=== PATIENT | female | born 1975 | race Caucasian/White ===

== ENCOUNTER 2016-08-02 11:44 | Emergency (ER) | payer OTHER ==
[~2016-08-02] VITALS: Ht 177.8 cm; Wt 104.3 kg
[2016-08-02] MEDS ORDERED: IV NORMAL SALINE 1000ML BAG 1,000 ML IV SCH (12:20)
[2016-08-02] MEDS ORDERED: ONDANSETRON PF 4 MG/2 ML VIAL. IV ONE (12:30)
[2016-08-02] MEDS ORDERED: FENTANYL PF 100 MCG/2 ML VIAL. IV PRN (12:30)
--- NOTE | 2016-08-02 12:35 | PHYS DOC ---
Past Medical History Past Medical History: Hypothyroid, UTI, Other Additional Past Medical Histor: cervical dystonia Past Surgical History: Hysterectomy Alcohol Use: Rarely Drug Use: None Adult General Chief Complaint Chief Complaint: WEAKNESS/GENERALIZED HPI HPI Patient is a 41 year old female who presents with complaint of generalized weakness. Patient states that her symptoms have been present over the past 24 hours. The patient went to urgent care due to complaints of dysuria and was started on Macrobid for treatment of urinary tract infection. Patient states since then she has started to get lightheaded, increasing fatigue, increasing shortness of breath, and dull generalized abdominal pain with pain radiating into her bilateral flanks. Patient states that she has felt warm but has not measured her temperature at home. Patient has not had any vomiting. Patient does not feel despite today's treatment that her symptoms are getting any better at this time. Patient states while at work she started getting very lightheaded and diaphoretic and felt like she is going to pass out, therefore she came to the emergency department for evaluation. Patient rates her pain as 7 out of 10 currently. Review of Systems Review of Systems Constitutional: Subjective fever, chills, lightheadedness [] Eyes: Denies change in visual acuity, redness, or eye pain [] HENT: Denies nasal congestion or sore throat [] Respiratory: Shortness of breath [] Cardiovascular: Chest pain [] GI: Abdominal pain, denies nausea, vomiting, bloody stools or diarrhea [] : Dysuria [] Musculoskeletal: Myalgias, bilateral flank pain [] Integument: Denies rash or skin lesions [] Neurologic: Denies headache, focal weakness or sensory changes [] Endocrine: Denies polyuria or polydipsia [] Current Medications Current Medications Current Medications Medications (Trade) Dose Ordered Sig/Suly Start Time Stop Time Status Last Admin Dose Admin Cephalexin HCl (Keflex) 500 mg 1X STAT 08/02/16 14:09 08/02/16 14:13 DC Fentanyl Citrate 50 mcg 50 mcg PRN Q15MIN PRN 08/02/16 12:30 08/03/16 12:29 08/02/16 13:16 50 MCG Ondansetron HCl (Zofran) 4 mg 1X ONCE 08/02/16 12:30 08/02/16 12:34 DC 08/02/16 13:15 4 MG Sodium Chloride (Iv Sodium Chloride 0.9% 1000ml Bag) 1,000 ml @ 1,000 mls/hr Q1H 08/02/16 12:20 08/02/16 14:19 DC 08/02/16 13:16 1,000 MLS/HR Allergies Allergies Allergies Coded Allergies Type Severity Reaction Last Updated Verified sulfamethoxazole Allergy Intermediate itching 08/02/16 Yes trimethoprim Allergy Intermediate itching 08/02/16 Yes Physical Exam Physical Exam Constitutional: Alert, afebrile, appears in mild to moderate discomfort. [] HENT: Normocephalic, atraumatic, bilateral external ears normal, oropharynx moist, no oral exudates, nose normal. [] Eyes: PERRLA, EOMI, conjunctiva normal, no discharge. [] Neck: Normal range of motion, no tenderness, supple, no stridor. [] Cardiovascular: Tachycardia, regular rhythm, no murmur [] Lungs & Thorax: Bilateral breath sounds clear to auscultation [] Abdomen: Bowel sounds normal, soft, no tenderness, no masses, no pulsatile masses. [] Skin: Warm, dry, no erythema, no rash. [] Back: No midline tenderness, bilateral CVA tenderness, no flank ecchymosis. [] Extremities: No tenderness, no cyanosis, no clubbing, ROM intact, no edema. [] Neurologic: Alert and oriented X 3, normal motor function, normal sensory function, no focal deficits noted. [] Current Patient Data Vital Signs Vital Signs Date Time Temp Pulse Resp B/P Pulse Ox O2 Delivery O2 Flow Rate FiO2 08/02/16 13:16 16 08/02/16 11:52 97.9 122 133/92 96 Room Air 97.9 Lab Values Laboratory Tests Test 08/02/16 11:11 08/02/16 12:49 POC Urine HCG, Qualitative Hcg negative (Negative) White Blood Count 12.1x10^3/uL (4.0-11.0) H Red Blood Count 4.41x10^6/uL (3.50-5.40) Hemoglobin 12.9g/dL (12.0-15.5) Hematocrit 39.0% (36.0-47.0) Mean Corpuscular Volume 89fL (79-100) Mean Corpuscular Hemoglobin 29pg (25-35) Mean Corpuscular Hemoglobin Concent 33g/dL (31-37) Red Cell Distribution Width 13.7% (11.5-14.5) Platelet Count 263x10^3/uL (140-400) Neutrophils (%) (Auto) 76% (31-73) H Lymphocytes (%) (Auto) 13% (24-48) L Monocytes (%) (Auto) 7% (0-9) Eosinophils (%) (Auto) 4% (0-3) H Basophils (%) (Auto) 0% (0-3) Neutrophils # (Auto) 9.2x10^3uL (1.8-7.7) H Lymphocytes # (Auto) 1.6x10^3/uL (1.0-4.8) Monocytes # (Auto) 0.9x10^3/uL (0.0-1.1) Eosinophils # (Auto) 0.5x10^3/uL (0.0-0.7) Basophils # (Auto) 0.0x10^3/uL (0.0-0.2) Urine Collection Type Unknown Urine Color Yellow Urine Clarity Clear Urine pH 6.5 Urine Specific [place] 1.010 Urine Protein Negativemg/dL (NEG-TRACE) Urine Glucose (UA) Negativemg/dL (NEG) Urine Ketones (Stick) Negativemg/dL (NEG) Urine Blood Negative (NEG) Urine Nitrite Negative (NEG) Urine Bilirubin Negative (NEG) Urine Urobilinogen Dipstick 0.2mg/dL (0.2 mg/dL) Urine Leukocyte Esterase Negative (NEG) Urine RBC Occ/HPF (0-2) Urine WBC 1-4/HPF (0-4) Urine Squamous Epithelial Cells Mod/LPF Urine Renal Epithelial Cells Few/LPF Urine Bacteria 0/HPF (0-FEW) Urine Mucus Mod/LPF Sodium Level 144mmol/L (136-145) Potassium Level 3.9mmol/L (3.5-5.1) Chloride Level 108mmol/L (98-107) H Carbon Dioxide Level 25mmol/L (21-32) Anion Gap 11 (6-14) Blood Urea Nitrogen 10mg/dL (7-20) Creatinine 0.7mg/dL (0.6-1.0) Estimated GFR (Cockcroft-Gault) 92.2 BUN/Creatinine Ratio 14 (6-20) Glucose Level 100mg/dL (70-99) H Lactic Acid Level 1.3mmol/L (0.4-2.0) Calcium Level 9.3mg/dL (8.5-10.1) Total Bilirubin 0.6mg/dL (0.2-1.0) Aspartate Amino Transferase (AST) 38U/L (15-37) H Alanine Aminotransferase (ALT) 104U/L (14-59) H Alkaline Phosphatase 116U/L (46-116) Total Protein 6.7g/dL (6.4-8.2) Albumin 3.3g/dL (3.4-5.0) L Albumin/Globulin Ratio 1.0 (1.0-1.7) Lipase 112U/L (73-393) Laboratory Tests 08/02/16 12:49 Laboratory Tests 08/02/16 12:49 EKG EKG Interpreted by me: Heart rate 101, sinus tachycardia, normal intervals, normal axis, no acute ST/T-wave abnormalities present [] Radiology/Procedures Radiology/Procedures [facility] [address] [place] [address] IMAGING REPORT Signed PATIENT: BRENT RICHARDSON ACCOUNT: [id number] : 1975 LOCATION: ER AGE: 41 SEX: F EXAM STATUS: REG ER ORD. PHYSICIAN: JOSE RANGEL MD REASON: chest pain, lightheadedness PROCEDURE: CHEST PA & LATERAL Indication weakness lightheadedness shortness of air. Chest pain. PA and lateral views of the chest were obtained. No prior imaging is available. The heart and pulmonary vessels appear normal. There is a density at the left costophrenic angle likely reflecting atelectasis or scar. A consolidated pneumonia is not seen. There is no pleural fluid or pneumothorax. IMPRESSION: No acute finding apparent in the chest DICTATED and SIGNED BY: GETACHEW ANDINO MD DATE: 08/02/16 1310 CC: JOSE RANGEL MD; MARGIE SILVERIO MD ~ [] Course & Med Decision Making Course & Med Decision Making Pertinent Labs and Imaging studies reviewed. (See chart for details) Patient was given 2 L of IV fluids in the emergency department. Patient's lab work appears unremarkable. On reevaluation, patient states her symptoms have improved at this time. Due to presence of urinary symptoms, the patient was started on Keflex and instructed to continue on Macrobid as prescribed previously. Advise follow-up with patient's primary doctor in the next 3-5 days and return to the emergency department for any worsening symptoms. Patient voiced understanding and in agreement with treatment plan. Dragon Disclaimer Dragon Disclaimer This electronic medical record was generated, in whole or in part, using a voice recognition dictation system. Departure Departure Impression: Primary Impression: Urinary tract infection Disposition: HOME, SELF-CARE Condition: IMPROVED Patient Instructions: Urinary Tract Infection Additional Instructions: Follow-up with your primary doctor in 3-5 days. Return to the emergency department for any worsening symptoms. Scripts Ondansetron (Zofran Odt)4 Mg Tab.rapdis1 Tab SL Q8HRS PRN NAUSEA/VOMITING #15 TAB Prov:JOSE RANGEL MD 08/02/16 Cephalexin (Keflex)500 Mg Capsule1 Cap PO TID #21 CAP Prov:JOSE RANGEL MD 08/02/16 Problem Qualifiers Primary Impression: Urinary tract infection Urinary tract infection type: site unspecified Hematuria presence: without hematuria Qualified Code: N39.0 - Urinary tract infection, site not specified JOSE RANGEL MD Aug 02, 2016 12:35
[2016-08-02 13:09] LABS: BILIRUBIN,URINE NEGATIVE (NEG); GLUCOSE,URINE NEGATIVE (NEG); NITRITE,URINE NEGATIVE (NEG); PH,URINE 6.5; PROTEIN,URINE NEGATIVE (NEG-TRACE); UROBILINOGEN,URINE 0.2 mg/dL (0.2 mg/dL)
[2016-08-02 13:12] LABS: BASO % 0 % (0-3); EOS % 4 % (0-3); HEMOGLOBIN 12.9 g/dL (12.0-15.5); LYMPH # 1.6 x10^3/uL (1.0-4.8); LYMPH % 13 % (24-48); MEAN CORPUSCULAR HEMOGLOBIN 29 pg (25-35); MEAN CORPUSCULAR HGB CONC 33 g/dL (31-37); MEAN CORPUSCULAR VOLUME 89 fL (79-100); MONO % 7 % (0-9); NEUT % 76 % (31-73); PLATELET COUNT 263 x10^3/uL (140-400); RED BLOOD COUNT 4.41 x10^6/uL (3.50-5.40); RED CELL DISTRIBUTION WIDTH 13.7 % (11.5-14.5); WHITE BLOOD COUNT 12.1 x10^3/uL (4.0-11.0)
[2016-08-02 13:14] LABS: CALCIUM 9.3 mg/dL (8.5-10.1); CREATININE 0.7 mg/dL (0.6-1.0); GFR 92.2; POTASSIUM 3.9 mmol/L (3.5-5.1)
--- NOTE | 2016-08-02 13:15 | RAD ---
Indication weakness lightheadedness shortness of air. Chest pain. PA and lateral views of the chest were obtained. No prior imaging is available. The heart and pulmonary vessels appear normal. There is a density at the left costophrenic angle likely reflecting atelectasis or scar. A consolidated pneumonia is not seen. There is no pleural fluid or pneumothorax. IMPRESSION: No acute finding apparent in the chest
[2016-08-02 13:21] LABS: ALBUMIN 3.3 g/dL (3.4-5.0); BACTERIA,URINE 0 /HPF (0-FEW); RBC,URINE OCC /HPF (0-2); SQUAMOUS EPITHELIAL CELL,UR MOD /LPF; TOTAL BILIRUBIN 0.6 mg/dL (0.2-1.0); TOTAL PROTEIN 6.7 g/dL (6.4-8.2)
[2016-08-02] MEDS ORDERED: CEPHALEXIN 250 MG CAPSULE. PO STA (14:09)
[2016-08-02] MEDS ORDERED: ONDA4TAB10 SL (14:33)
[2016-08-02] MEDS ORDERED: CEPH-264 PO (14:33)
[2016-08-02 14:43] VITALS: BP 11/68
--- NOTE | 2016-08-03 09:07 | EKG ---
[facility] [address] [place] [address] Test Date: 2016-08-02 Test Time: 12:46:32 Pat Name: BRENT RICHARDSON Department: Room: Gender: F Deburrer: : 1975 Requested By: JOSE RANGEL Order Number: [id number] Reading MD: Geneva Demarco Measurements Intervals [place] Rate: 101 P: 60 WV: 138 QRS: 48 QRSD: 88 T: 3 QT: 350 QTc: 455 Interpretive Statements SINUS TACHYCARDIA NON SPECIFIC ST T WAVE CHANGES RI6.01 No previous ECG available for comparison Electronically Signed On 08-04-2016 18:57:01 CDT by Geneav Demarco
== END 2016-08-02 14:46 | disposition home or self-care (01) ==
LOC: ER 11:44
DX: N39.0 Urinary tract infection, site not specified (principal); R06.02 Shortness of breath; R53.1 Weakness; E03.9 Hypothyroidism, unspecified; Z90.710 Acquired absence of both cervix and uterus; Z88.2 Allergy status to sulfonamides; Z88.8 Allergy status to other drugs, medicaments and biological substances
CPT/HCPCS: 36415; 71020; 80053; 81001; 81025; 83605; 83690; 85027; 87040; 93005; 96361; 96374; 96375; 99285; J2405; J3010; J7030